=== PATIENT | female | born 1985 | race Caucasian/White ===

== ENCOUNTER 2020-10-27 08:09 | Inpatient (IN) ==
[2020-10-27] MEDS ORDERED: LACTATED RINGER'S 1,000 ML IV SCH ×3 (08:30→11:50)
[2020-10-27 08:47] LABS: Basophils # (auto) 0.01 K/uL (0-0.2); Basophils % (auto) 0.1 %; Eosinophils # (auto) 0.03 K/uL (0-0.5); Eosinophils % (auto) 0.4 %; Hemoglobin 11.4 g/dL (12.0-16.0); Immature Granulocytes # (auto) 0.02 K/uL (0.00-0.02); Immature Granulocytes % (auto) 0.3 %; Lymphocytes # (auto) 1.24 K/uL (1.2-3.4); Lymphocytes % (auto) 18.1 %; Mean Corpuscular Hemoglobin 25.7 pg (25-34); Mean Corpuscular Hgb Conc 32.6 g/dL (32-36); Mean Corpuscular Volume 78.8 fL (80-100); Mean Platelet Volume 11.1 fL (7.4-10.4); Monocytes # (auto) 0.45 K/uL (0.11-0.59); Monocytes % (auto) 6.6 %; Neutrophils # (auto) 5.11 K/uL (1.4-6.5); Neutrophils % (auto) 74.5 %; Platelet Count 228 K/uL (130-400); RDW Coefficient of Variation 14.8 % (11.5-14.5); RDW Standard Deviation 42.7 fL (36.4-46.3); Red Blood Count 4.44 M/uL (4.2-5.4); White Blood Count 6.86 K/uL (4.8-10.8)
--- NOTE | 2020-10-27 08:58 | Anesthesiology Consultation ---
Date of Service October 27, 2020 Assessment & Plan (1) Encounter for pre-operative examination: Chart Review Chart Review: Acceptable Risk for Surgery and Patient NOT seen in Pre Admission Testing Consults Requested none ASA ASA2 Proposed Anesthesia Anesthesia Type: Spinal Risk / Benefits Reviewed With: PT / POA / Parent / Guardian, Accepts Plan and Informed Consent Obtained History Surgery Operation Date: 10/27/20 08:25 Proposed Procedures p Section in LD - Rich Martínez MD Height/Weight Height: 5 ft Weight: 77.564 kg Allergies Allergy/AdvReac Type Severity Reaction Status Date / Time No Known Allergies Allergy Unverified 10/27/20 08:22 Medications Home Medications Medication Instructions Recorded Confirmed Last Taken hueozaxp-ils-Lp-FA 1 tab PO DAILY 10/27/20 10/27/20 10/26/20 17:00 [] Active Medications Generic Name Dose Route Start Last Admin Trade Name Freq PRN Reason Stop Dose Admin Lactated Ringer's 1,000 mls @ 999 mls/hr 10/27/20 08:30 10/27/20 09:17 Lr IV 10/27/20 09:30 999 mls/hr .[id number] ARELIS Administration NPO Date Last Intake of Fluids: 10/26/20 Time Last Intake of Fluids: 19:30 Date Last Intake of Solids: 10/26/20 Time Last Intake of Solids: 19:30 Past Medical History Medical History History of COVID-19 Tested postive on 08/16/2020 Large for gestational age fetus 33 weeks identifed at [facility] Exercise / Class Metabolic Activity II 4-5 Yardwork/Stairs/Walk up hill Negative for chest pain or shortness of breath. Past Surgical History Surgical History History of primary csection in 2011, pushed for 2 plus hours History of dental surgery as a teenager Past Anesthesia History No Hx of Anesthesia Complications History of PONV No Hx of PONV Social History Smoking Status: Never smoker Hx Alcohol Use: No Hx Substance Use: No substance use type: does not use Review of Systems Patient denies active symptoms of GERD. Patient denies numbness, tingling or weakness in lower extremities. Patient denies history of abnormal bleeding or bleeding disorder. Patient denies active use of anticoagulants other than low dose aspirin. Physical Exam Vital Signs Last Vital Signs Temp 36.9 C 10/27/20 08:28 Pulse 82 10/27/20 08:18 Resp 16 10/27/20 08:28 BP 126/85 10/27/20 08:18 Constitutional not obese (gravid uterus) ENMT Mouth: no TMJ abnormality and oral opening not small Thyromental Distance: > or= 3.5 Finger Breadths Mallampati Class: II Neck normal visual inspection; neck extension not limited Respiratory normal respiratory effort Auscultation: lungs clear to auscultation bilaterally Cardiovascular Rate/Rhythm: regular rate and regular rhythm Heart Sounds: no murmur Neurologic moves all extremities Motor/Sensory: no sensory deficit Psychiatric Orientation: alert and oriented x 3 Testing Laboratory Results 10/27/20 08:38
[2020-10-27] MEDS ORDERED: ceFAZolin 2000MG 2,000 MG/15 ML SYR IV SCH (09:00)
[2020-10-27] MEDS ORDERED: CITRIC ACID/SODIUM CITRATE 15 ML UDC ONE (09:26)
[2020-10-27] MEDS ORDERED: MoRPHine SULFATE PF 1 MG/ML 10 ML AMP/VIAL ONE (09:27)
[2020-10-27] MEDS ORDERED: fentaNYL citrate 100 MCG/2 ML VIAL ONE (09:27)
[2020-10-27] MEDS ORDERED: ONDANSETRON INJ 2 MG/ML 2 ML VIAL ONE (09:35)
[2020-10-27] MEDS ORDERED: OXYTOCIN 10 UNITS/ML VIAL ONE (09:35)
[2020-10-27] MEDS ORDERED: ePHEDrine sulfate 50 MG/ML AMP ONE (09:37)
[2020-10-27] MEDS ORDERED: PHENYLEPHRINE 100MCG/ML 5ML SYR ONE (10:25)
[2020-10-27] MEDS ORDERED: KETOROLAC 30 MG/ML VIAL ONE (10:38)
[2020-10-27] MEDS ORDERED: NALOXONE HCL 0.4 MG/1 ML VIAL/CARP IV PRN (10:45)
[2020-10-27] MEDS ORDERED: ONDANSETRON INJ 2 MG/ML 2 ML VIAL IV PRN ×2 (10:45→11:50)
[2020-10-27] MEDS ORDERED: NALOXONE HCL 0.08 MG in SYRINGE 1.8 ML IV PRN (10:45)
[2020-10-27] MEDS ORDERED: ePHEDrine sulfate 50 MG/ML AMP IV PRN (10:45)
[2020-10-27] MEDS ORDERED: NALOXONE HCL 1 MG in SODIUM CHLORIDE 0.9% 1000ML 1,000 ML IV PRN (10:45)
[2020-10-27] MEDS ORDERED: MoRPHine SULFATE PF 1 MG/ML 10 ML AMP/VIAL INT SPINAL ONE (10:45)
[2020-10-27] MEDS ORDERED: PROMETHAZINE HCL 25 MG in SODIUM CHLORIDE 0.9% 50 ML IV PRN ×2 (10:45→11:50)
[2020-10-27] MEDS ORDERED: KETOROLAC 30 MG/ML VIAL IV PRN (10:45)
[2020-10-27] MEDS ORDERED: HYDROmorphone INJ 0.5 MG/0.5 ML SYR IV PRN (10:45)
[2020-10-27] MEDS ORDERED: LACTATED RINGER'S 500 ML IV PRN (10:45)
[2020-10-27] MEDS ORDERED: ACETAMINOPHEN 1000 MG/100 ML IV IV PRN (10:45)
[2020-10-27] MEDS ORDERED: SODIUM CHLORIDE 0.9% 1000ML 1,000 ML IV SCH (10:45)
[2020-10-27] MEDS ORDERED: diphenhydrAMINE 50 MG/ML VIAL IV PRN (10:45)
[2020-10-27] MEDS ORDERED: NO NARCOTICS OR SEDATIVES SCH (10:45)
--- NOTE | 2020-10-27 11:08 | Post Operative Brief Note ---
Immediate Post Op Note v1 Date of Surgery October 27, 2020 Pre & Post Diagnosis Operation Date: 10/27/20 08:25 Pre-Op Diagnosis: CONFIRMED RUPTURE OF MEMBRANES; DESIRE FOR REPEAT SECTION AND BILATERAL TUBAL LIGATION Post-Op Diagnosis: CONFIRMED RUPTURE OF MEMBRANES; DESIRE FOR REPEAT SECTION AND BILATERAL TUBAL LIGATION I identified the patient and participated in the time-out.: Yes Procedure Operation Date: 10/27/20 08:25 Actual Procedures p Section in LD; delivery of live male at 1017 - Rich Martínez MD Surgeon Rich Martínez MD Motorized Squad Lieutenant Dr Melendrez Estimated Blood Loss 600 Findings Consistent with Post-Op Diagnosis Drains Bartholomew Catheter
--- NOTE | 2020-10-27 11:26 | History and Physical Report ---
DATE OF ADMISSION: 10/27/2020 REASON FOR ADMISSION: spontaneous rupture of membranes with a previous section. HISTORY OF PRESENT ILLNESS: The patient is a 35-year-old female, para 1-0-0-1 at 35 weeks and 5 days with spontaneous rupture of membranes this morning when she was bending down to put her compression stockings on. When she arrived to labor and delivery, she was not alejandro and she had gross rupture of membranes. The patient desires elective repeat section and voluntary sterilization procedure. PAST MEDICAL HISTORY: Significant for a in the past in 2011 for large for gestational age baby and small pelvis. This was done in [facility]. FAMILY HISTORY: Noncontributory. SOCIAL HISTORY: Denies smoking, alcohol or drug use. PAST SURGICAL HISTORY: x1. MEDICATIONS: Include vitamins. ALLERGIES: No known allergies. PHYSICAL EXAMINATION: HEENT: Within normal limits. LUNGS: Clear to auscultation. CARDIOVASCULAR: Regular rate and rhythm. ABDOMEN: Soft, nontender, gravid. heart tone category 1. EXTREMITIES: Legs, no edema. Extremities without any evidence of Homans. NEUROLOGIC: Intact. PSYCHIATRIC: Negative. ASSESSMENT: spontaneous rupture of membranes with desire for elective repeat section and voluntary sterilization procedure. PLAN: As discussed. Consents obtained and signed. We will proceed with surgery.
[2020-10-27] MEDS ORDERED: HYDROCORTISONE ACETATE 25 MG SUPP PR PRN (11:50)
[2020-10-27] MEDS ORDERED: SENNA 8.6 MG TAB PO PRN (11:50)
[2020-10-27] MEDS ORDERED: SUPERCREAM 0.870% 15 GM JAR EXT PRN (11:50)
[2020-10-27] MEDS ORDERED: DIPHTHERIA/TETANUS/PERTUSSIS 0.5 ML SYR/VIAL IM ONE (11:50)
[2020-10-27] MEDS ORDERED: MAGNESIUM HYDROXIDE SUSP 30 ML UDC PO PRN (11:50)
[2020-10-27] MEDS ORDERED: BENZOCAINE 20% AER SPR 82.5 GM CAN EXT PRN (11:50)
--- NOTE | 2020-10-27 12:31 | Anesthesiology Progress Note ---
Date of Service October 27, 2020 Anesthesia Post Procedure Vital Signs Vital Signs: Temp Pulse Resp BP Pulse Ox 10/27/20 12:27 60 99 10/27/20 12:25 59 L 103/57 L 10/27/20 12:22 83 100 10/27/20 12:17 81 99 10/27/20 12:15 74 109/57 L 10/27/20 12:12 72 98 10/27/20 12:07 74 97 10/27/20 12:05 71 112/58 L 10/27/20 12:03 36.5 C 16 10/27/20 12:02 64 98 10/27/20 11:57 79 98 10/27/20 11:55 79 109/56 L 10/27/20 11:53 16 10/27/20 11:52 76 96 10/27/20 11:47 77 98 10/27/20 11:45 75 100/51 L 10/27/20 11:43 16 10/27/20 11:42 74 98 10/27/20 11:37 82 96 10/27/20 11:35 80 113/59 L 10/27/20 11:34 77 18 94 10/27/20 11:32 75 97 10/27/20 11:27 78 95 10/27/20 11:25 80 115/55 L 10/27/20 11:23 18 10/27/20 11:22 74 97 10/27/20 11:17 75 97 10/27/20 11:15 86 111/53 L 10/27/20 11:13 18 10/27/20 11:12 77 94 10/27/20 11:09 81 89 L 10/27/20 11:07 68 99 10/27/20 11:03 36.4 C L 72 16 114/64 10/27/20 11:02 74 96 10/27/20 08:28 36.9 C 16 10/27/20 08:18 82 126/85 Transfer of Care Handoff Completed per policy Notes Mental Status: alert / awake / arousable and participated in evaluation Nausea / Vomiting: adequately controlled Pain: adequately controlled Airway Patency, RR, SpO2: stable & adequate BP & HR: stable & adequate Hydration State: stable & adequate Neuraxial Anesthesia: was administered and sensory block is resolving Anesthetic Complications: no major complications apparent and Pt Satisfied with anesthetic care
[2020-10-27] MEDS: OXYTOCIN 30 UNITS in LACTATED RINGER'S 1,000 ML IV SCH ×2 (13:36→21:44)
[2020-10-27] MEDS: SIMETHICONE 80 MG CHEW PO SCH ×3 (13:36→21:08)
[2020-10-27] MEDS ORDERED: Nursing to Pharmacy Communication SCH (15:45)
[2020-10-27] MEDS ORDERED: LACTATED RINGER'S 500 ML IV ONE (17:34)
[2020-10-27] MEDS: DOCUSATE SODIUM 100 MG CAP PO SCH (21:08)
--- NOTE | 2020-10-28 02:59 | Operative Report (OR) ---
DATE OF OPERATION: 10/27/2020 PREOPERATIVE DIAGNOSIS: spontaneous rupture of membranes with previous section and voluntary sterilization procedure. POSTOPERATIVE DIAGNOSIS: spontaneous rupture of membranes with previous section and voluntary sterilization procedure. PROCEDURE: Repeat section, low segment transverse along with bilateral tubal ligation with Filshie clips. SURGEON: Rich Martínez MD DIVISION DIRECTOR: Dr. Melendrez. ANESTHESIA: Spinal. CLINICAL HISTORY: The patient is a 35-year-old female, para 1-0-0-1 at 35 weeks and 5 days with spontaneous rupture of membranes this morning. She presented to labor room. Her membranes were ruptured, confirmed by Nitrazine, grossly ruptured and informed consent was obtained including consent for tubal ligation. A timeout was called prior to the start of the procedure and antibiotics were given preop. DESCRIPTION OF PROCEDURE: Under satisfactory spinal anesthesia, the patient was prepped and draped in the usual sterile fashion. A low Pfannenstiel incision through a prior scar was then made, carrying down into the abdominal cavity and successive layers without difficulty. Upon entering into the peritoneal cavity, Metzenbaum scissors were then used to develop a bladder flap. This was then dissected down. A low segment transverse incision over the lower uterine segment was made. The incision was widened in the AP diameter. The amniotic sac was then nicked. Clear fluid was noted. The infant was then delivered from the vertex position with the aid of fundal pressure. There was a nuchal cord x3 that was reduced at the time of delivery. Delayed cord clamping was then accomplished with the cord being doubly clamped and then cut. Baby was handed to press helper. Apgars were 8 and 9, weight 6 pounds 9 ounces, live male. Cord blood was obtained and then placenta was delivered spontaneously and intact. Both were submitted to pathology as separate specimens. Uterus was then exteriorized. Ring forceps were used to grasp both angles in the inferior margin. Another ring was then used to dilate the cervix. Uterus was closed in a single layered closure with 0 Vicryl suture in a continuous interlocking fashion. The lower uterine segment was inspected, no active bleeding was noted. Tubes and ovaries bilaterally were found to be within normal limits. The tubes were then grasped and then serially the Filshie clips were then applied x2 to each tube. No active bleeding was noted. The contents of the pelvic cavity were then irrigated to clear. The uterus was placed back into the normal anatomical position. The initial sponge, needle, and instrument count were found to be correct. The lower uterine segment was inspected once more and then irrigated to clear. The fascia was then reapproximated using 0 Vicryl suture in a continuous fashion. Subcuticular space was then irrigated. Bleeders were cauterized. The subcuticular space was closed with 3-0 plain suture and then the skin was reapproximated with Monocryl in a continuous running fashion and Dermabond was then applied to the skin incision. All remaining instruments were accounted for. The final sponge, needle and instrument count were found to be correct. The patient was then placed supine on a stretcher and she was taken to recovery room in stable condition. ESTIMATED BLOOD LOSS: 600 mL. TOTAL FLUIDS: 600 mL URINE OUTPUT: [address] note [address] Melendrez was there and performed the role of financial administrative assistant surgeon requiring him to elevate the uterus, perform fundal pressure and to assist at surgery. I attest to the content of the Intraoperative Record and any orders documented therein. Any exception s are noted below.
[2020-10-28] MEDS ORDERED: DC INTRASPINAL MORPHINE ONE (04:45)
[2020-10-28] MEDS ORDERED: oxyCODONE/ACETAMINOPHEN 5mg/325mg TAB PO PRN (04:45)
[2020-10-28] MEDS ORDERED: diphenhydrAMINE Capsule 25 MG CAP PO PRN (04:45)
[2020-10-28] MEDS ORDERED: MEPERIDINE HCL 50 MG/ML CARP IV PRN (04:45)
[2020-10-28] MEDS ORDERED: diphenhydrAMINE 50 MG/ML VIAL IV PRN (04:45)
[2020-10-28] MEDS ORDERED: KETOROLAC 30 MG/ML VIAL IV PRN (04:45)
[2020-10-28] MEDS: IBUPROFEN 600 MG TAB PO PRN ×2 (05:00→09:35)
[2020-10-28] MEDS ORDERED: NON-FORMULARY MEDICATION (Prenatal Multivit-Min-Fe-Fa 1 mg Tablet) PO SCH (09:00)
[2020-10-28] MEDS: PRENATAL VITAMIN 1 TAB PO SCH (09:35)
[2020-10-28] MEDS: SIMETHICONE 80 MG CHEW PO SCH ×3 (09:35→19:44)
[2020-10-28] MEDS: DOCUSATE SODIUM 100 MG CAP PO SCH ×3 (09:36→19:44)
[2020-10-28] MEDS: FERROUS SULFATE 325 MG TAB PO SCH (09:36)
[2020-10-28 12:23] LABS: Basophils # (auto) 0.01 K/uL (0-0.2); Basophils % (auto) 0.1 %; Eosinophils # (auto) 0.06 K/uL (0-0.5); Eosinophils % (auto) 0.6 %; Hemoglobin 11.2 g/dL (12.0-16.0); Immature Granulocytes # (auto) 0.02 K/uL (0.00-0.02); Immature Granulocytes % (auto) 0.2 %; Lymphocytes # (auto) 1.15 K/uL (1.2-3.4); Lymphocytes % (auto) 12.1 %; Mean Corpuscular Hemoglobin 25.5 pg (25-34); Mean Corpuscular Volume 79.5 fL (80-100); Mean Platelet Volume 11.3 fL (7.4-10.4); Monocytes % (auto) 8.4 %; Neutrophils # (auto) 7.49 K/uL (1.4-6.5); Neutrophils % (auto) 78.6 %; Platelet Count 229 K/uL (130-400); RDW Coefficient of Variation 14.7 % (11.5-14.5); RDW Standard Deviation 42.8 fL (36.4-46.3); White Blood Count 9.53 K/uL (4.8-10.8)
--- NOTE | 2020-10-28 14:04 | Obstetrical Progress Note ---
Date of Service October 28, 2020 Assessment & Plan (1) delivery delivered: c/sec day #2 pt doing well no complains anticipate disch tomorrow Subjective Ambulation: ambulating normally Voiding: no voiding problems Passing Gas:: Yes Diet Tolerance:: clear liquids Lochia:: Small Feeding Type:: breast feeding Review of Systems All systems reviewed & are unremarkable except as noted in HPI & below Physical Exam Constitutional WD/WN, vitals as above well developed and well nourished Eyes PERRL, conjunctivae normal, anicteric sclerae ENMT external ear and nose normal, oropharynx normal Neck trachea midline, no thyromegaly Respiratory normal respiratory effort, lungs clear to auscultation Cardiovascular RRR, no murmur, no edema Chest (Breasts) normal inspection/palpation of breasts Gastrointestinal (Abdomen) normal bowel sounds, soft, nontender, no hepatosplenomegaly Musculoskeletal no cyanosis or clubbing, extremities motor strength 5/5 Skin no rashes, warm and dry + incision (Clean,dry and intact) Neurologic patellar DTR's 2+ bilat, sensation intact Psychiatric A+Ox3, euthymic affect Genitourinary normal external appearance Lymphatic no cervical or axillary lymphadenopathy Results & Data ([facility]) Vital Signs (Past 12 Hours) Vital Signs Temp Pulse Resp BP Pulse Ox 10/28/20 08:45 36.9 C 82 20 94/67 L 100 10/28/20 04:45 18 97 10/28/20 03:35 36.9 C 72 18 99/64 L 96 10/28/20 02:30 16 95
[2020-10-28] MEDS ORDERED: bisacodyL 5 MG TABEC PO SCH (20:00)
[2020-10-29] MEDS: IBUPROFEN 600 MG TAB PO PRN ×2 (01:14→05:47)
[2020-10-29 01:33] VITALS: O2SAT 99
[2020-10-29 08:02] VITALS: BP 137/84; PULSE 85; TEMP 98.1
[2020-10-29] MEDS: SIMETHICONE 80 MG CHEW PO SCH (08:05)
[2020-10-29] MEDS: DOCUSATE SODIUM 100 MG CAP PO SCH (08:06)
[2020-10-29] MEDS: PRENATAL VITAMIN 1 TAB PO SCH (08:06)
[2020-10-29] MEDS: FERROUS SULFATE 325 MG TAB PO SCH (08:06)
[2020-10-29] MEDS ORDERED: bisacodyL 10 MG SUPP PR PRN (11:04)
--- NOTE | 2020-11-04 11:16 | Discharge Summary (DS) ---
HOSPITAL COURSE AND REASON FOR ADMISSION: The patient is a 35-year-old female, para 1-0-0-1 at 35 weeks and 5 days, admitted with spontaneous rupture of membranes in active labor. She was in an elective repeat section, desiring voluntary sterilization. She underwent a repeat section and tubal ligation with Filshie clips. Hospital course was uneventful and she was discharged 10/29/2020 in stable condition. Homegoing instructions were given. CONDITION ON DISCHARGE: Stable. DISCHARGE DIET: Regular diet on discharge. DISCHARGE MEDICATIONS: Include Motrin and Percocet. FOLLOWUP: Will be in 1 week for an incision check.
== END 2020-10-29 08:43 | disposition home or self-care (01) | DRG 785 ==
LOC: OPB 08:09 → 4S1 08:10 → 4S2 13:33